=== PATIENT | male | born 1975 | race African-American/Black ===

== ENCOUNTER 2017-11-10 05:59 | Day surgery (SDC) | payer MEDICAID ==
[~2017-11-10] VITALS: Ht 167.6 cm; Wt 59.0 kg
--- NOTE | ~2017-11-10 | OP ---
PATIENT NAME: CONCEPCION ASHRAF MEDICAL RECORD: [id number] :[birth year] LOCATION:[facility] ADMISSION DATE: SURGEON: ELAN LOPEZ MD DATE OF OPERATION: 11/10/2017 REFERRING PHYSICIAN: Dr. Kaykay Dorado. PREOPERATIVE DIAGNOSES: End-stage renal disease and dependence on hemodialysis, presently catheter dependent for dialysis access, also hypertension and insulin-dependent diabetes. OPERATION PERFORMED: Creation of a left wrist radiocephalic AV fistula. SURGEON: Elan Lopez MD ANESTHESIA: Regional block plus general anesthesia by LMA per Dr. Bernal. PREOPERATIVE NOTE: Mr. Ashraf is a 42-year-old -Iranian male with end-stage renal disease, dialyzing with a tunneled dialysis catheter. He needs a long-term access. He has large superficial veins and is brought to the operating room today with plans to create an AV fistula in the left upper extremity. DESCRIPTION OF PROCEDURE: Under nerve block and general, the patient was placed in supine position, prepped and draped in a sterile manner. A proximal venous tourniquet was applied using a [place] drain and the skin of the forearm and arm was treated with an application of nitroglycerin paste. Superficial veins stood out quite nicely. He has had a satisfactory cephalic vein at the wrist, which obviously drains via the basilic vein on ultrasound. The cephalic vein above the antecubital space was very small, so I believe that in the future, he would be a candidate for a brachiobasilic fistula, but today we will try to create a radiocephalic. A longitudinal incision made and the vessels exposed and treated with topical papaverine. Tributaries and branches were divided with electrocautery. The vein was gently distended and later closed with a Hemoclip distally and divided and bevelled. It was flushed with heparinized saline and hydrostatically dilated. The artery was then occluded with doubly looped Silastic tapes. The artery was opened, flushed proximally and distally with heparinized saline. There was no calcification present, mild atherosclerotic plaquing. There was a very good lumen to the radial artery, which was of adequate caliber. The end of vein was then sutured with running 7-0 Prolene to the side of the artery with the resultant suture line being hemostatic and there was a satisfactory geometry to the anastomosis. With release of the occluding loops and clamps, excellent flow was immediately established in the fistula and confirmed by hand held continuous wave Doppler. There was preservation of flow in the radial artery proximal and distal to the anastomosis. The wound was irrigated with Ancef and gentamicin solution. Oozing and bleeding from subcutaneous vessels was persistent, which eventually required treating the patient with 16 mcg of DDAVP IV and I used some topical thrombin and fibrillar. When hemostasis was adequate and the fistula was still working very well, the wound was closed with interrupted inverted 3-0 Vicryl and then running intracuticular 4-0 Monocryl and Dermabond glue. The incision was closed and dressed further with Maxorb Ag, Tegaderm, and Cavilon skin prep. He was awakened and taken to the recovery room. OPERATIVE REPORT [id number] CONCEPCION ASHRAF Blood loss during the procedure was minimal, although he did require the DDAVP and thrombin and fibrillar for hemostasis. There was no surgical specimen submitted. All sponges, instruments, and needles were accounted for. PLAN: The patient will be discharged to home today from the outpatient department. He will have an appointment scheduled for my office to see me next week and he is given a prescription for 10 Lignum tablets 5/325 to take 1 every 4-6 hours if needed for pain. TRANSINT:[id number] Voice Confirmation ID: [id number] DOCUMENT ID: [id number] ELAN LOPEZ MD at 1241 CC: KAYKAY DORADO MD [id number] DICTATION DATE: 11/10/17 1118 CONFERENCE PLANNING MANAGER: 11/10/17 1305 [facility] 11/10/17 [id number] [place] [address]
[2017-11-10 06:25] LABS: BASOPHILS 1.5 % (0-2); EOSINOPHILS 5.7 % (0-7); HEMATOCRIT 43.5 % (42.0-54.0); HEMOGLOBIN 14.8 g/dL (13.5-17.5); IMMATURE GRANULOCYTES 0.3 % (0-5); LYMPHOCYTES 21.7 % (15-50); MCH 30.7 pg (26.0-34.0); MCV 90.2 fL (80.0-100.0); MEAN PLATELET VOLUME 10.8 fL (7.4-10.4); MONOCYTES 6.1 % (2-11); NEUTROPHILS 64.7 % (40-80); PLATELET COUNT 268 10x3/uL (130-400); RBC 4.82 10x6/uL (4.20-6.10); WBC 8.8 10x3/uL (4.8-10.8)
[2017-11-10 06:33] LABS: APTT 28.2 SECONDS (22.8-39.4); INR 1.02 (0.85-1.17)
[2017-11-10] MEDS ORDERED: METOPROLOL TART50 MG PO (06:46)
[2017-11-10] MEDS ORDERED: SENSIPAR30 MG (06:47)
[2017-11-10] MEDS ORDERED: INSULIN ASPART (06:48)
[2017-11-10] MEDS ORDERED: NORVASC10 MG PO (06:48)
[2017-11-10] MEDS ORDERED: INSULIN ASPART PROTAMINE (06:48)
[2017-11-10] MEDS ORDERED: DESERYL100 MG PO (06:49)
[2017-11-10] MEDS ORDERED: CATAPRES0.2 MG PO (06:49)
[2017-11-10] MEDS ORDERED: NICODERM C1 PATCH .3 TRANSDERM (06:51)
[2017-11-10] MEDS ORDERED: TUMS500 MG PO (06:53)
[2017-11-10 06:54] VITALS: Ht 167.6 cm; Wt 59.0 kg
[2017-11-10 07:44] LABS: ALBUMIN 4.8 g/dL (3.4-5.0); ANION GAP 24.1 mmol/L (8-16); BILIRUBIN - TOTAL 0.4 mg/dL (0.2-1.3); CALCIUM 9.2 mg/dL (8.5-10.1); CARBON DIOXIDE 25.9 mmol/L (21.0-32.0); CREATININE - SERUM 5.7 mg/dL (0.6-1.3); PROTEIN - SERUM 9.5 g/dL (6.4-8.2)
[2017-11-10] MEDS ORDERED: HYDROCODON-ACE1 EAC7 PO (11:00)
== END 2017-11-10 13:30 | disposition home or self-care (01) ==
LOC: D.OPS 05:59
PROVIDERS: Surgery
DX: E11.22 Type 2 diabetes mellitus with diabetic chronic kidney disease (principal); I12.0 Hypertensive chronic kidney disease with stage 5 chronic kidney disease or end stage renal disease; N18.6 End stage renal disease; Z99.2 Dependence on renal dialysis; Z79.4 Long term (current) use of insulin; Z01.812 Encounter for preprocedural laboratory examination

== ENCOUNTER 2018-12-17 22:58 | Inpatient (IN) | payer MEDICAID ==
[~2018-12-17] VITALS: Ht 167.6 cm; Wt 59.0 kg
[~2018-12-17 22:58] MED LIST: CATAPRES0.2 MG PO; DESERYL100 MG PO; HYDROCODON-ACE1 EAC7 PO; INSULIN ASPART; INSULIN ASPART PROTAMINE; METOPROLOL TART50 MG PO; NICODERM C1 PATCH .3 TRANSDERM; NORVASC10 MG PO; SENSIPAR30 MG; TUMS500 MG PO
[2018-12-18 00:17] LABS: INR 1.27 (0.85-1.17); PROTIME 15.4 SECONDS (11.6-15.0)
[2018-12-18 00:18] LABS: BASOPHILS 0.4 % (0-2); EOSINOPHILS 4.7 % (0-7); HEMATOCRIT 24.9 % (42.0-54.0); HEMOGLOBIN 7.9 g/dL (13.5-17.5); IMMATURE GRANULOCYTES 0.4 % (0-5); LYMPHOCYTES 15.4 % (15-50); MCH 27.1 pg (26.0-34.0); MCHC 31.7 g/dL (31.0-37.0); MCV 85.6 fL (80.0-100.0); MEAN PLATELET VOLUME 8.5 fL (7.4-10.4); NEUTROPHILS 74.1 % (40-80); PLATELET COUNT 564 10x3/uL (130-400); RBC 2.91 10x6/uL (4.20-6.10); RDW 22.3 % (11.5-14.5); WBC 16.3 10x3/uL (4.8-10.8)
[2018-12-18 00:22] LABS: ALBUMIN 2.9 g/dL (3.4-5.0); ANION GAP 23.8 mmol/L (8-16); BILIRUBIN - TOTAL 0.78 mg/dL (0.2-1.3); CALCIUM 8.5 mg/dL (8.5-10.1); CARBON DIOXIDE 22.4 mmol/L (21.0-32.0); CREATININE - SERUM 7.8 mg/dL (0.6-1.3); POTASSIUM - SERUM 5.2 mmol/L (3.5-5.1); PROTEIN - SERUM 9.6 g/dL (6.4-8.2)
--- NOTE | 2018-12-18 00:28 | NUR ---
PT LEFT ED VIA WC FOR CT.
--- NOTE | 2018-12-18 00:40 | NUR ---
PT RETURNED FROM CT VIA WC. PT IN BED RESTING COMFORTABLY.
[2018-12-18 01:30] VITALS: BP 128/68
--- NOTE | 2018-12-18 02:18 | NUR ---
PT SLEEPING ON BED, PT FAMILY AT BEDSIDE.
--- NOTE | 2018-12-18 02:45 | NUR ---
LAB AT PT BEDSIDE DRAWING BLOOD CULTURES.
--- NOTE | 2018-12-18 03:10 | NUR ---
PT C/O PAIN. PRN ORDERS FOR MORPHINE AND ZOFRAN WILL BE ADMINISTERED.
--- NOTE | 2018-12-18 03:30 | NUR ---
PT ARRIVED TO FLOOR VIA WHEELCHAIR FROM ER WITH HOSPITAL STAFF. PT VITALS STABLE. FATIMAH WOODS HAD GIVEN PT PAIN MEDS BEFORE ARRIVAL. SEE SEP. PT VOMITED 500ML OF BROWN EMESIS UPON ARRIVAL. PT WAS FALLING ASLEEP DURING ASSESSMENT. PT COMPLAINS OF PAIN IN GLANS PENIS 7/10 AT THIS TIME. PT PRESENTED WITH BANDAGE TO RIGHT FOOT. REMOVED DRESSING THERE IS A STAGE 2 ULCER 5X5 TO HEEL. FOUL SMELL COMING FROM WOUND WITH YELLOW/GREEN DRAINAGE. PT STATES MOTHER HAS BEEN DRESSING WOUND. OPEN SORES AND SCABS ON BACK. BED LOW CALL LIGHT WITHIN REACH. WILL CONTINUE TO MONITOR.
[2018-12-18] MEDS ORDERED: LEVEMIR IN100 UNITS/ SC (03:58)
[2018-12-18] MEDS ORDERED: COREG6.25 MG PO (03:59)
[2018-12-18 04:48] VITALS: BP 183/97; BMI 21.0
[2018-12-18 07:32] VITALS: BP 131/82
--- NOTE | 2018-12-18 07:47 | NUR ---
MORNING ROUNDS MADE. PT SITTING UP ON SIDE OF BED WITH BEDSIDE TABLE WITHIN REACH. PT STATES PAIN IN GROIN/PENIS REGION, INFORMED PT I WOULD CHECK TO SEE WHEN PAIN MEDS WHERE DUE AND BRING THEM AT THE APPROPRIATE TIME. PT AGREED WITH POC. DENIES FURTHER NEEDS AT THIS TIME. FALL PRECAUTIONS IN PLACE. BED LOWERED AND LOCKED. CL IN REACH. WILL CTM.
--- NOTE | 2018-12-18 08:41 | NUR ---
VITALS STABLE. PT TOOK MEDS WITHOUT DIFFICULTY. PT C/O PAIN AT "THE HIGHEST LEVEL POSSIBLE" IN PENIS. MORPHINE GIVEN TO IV IN R FA, PATENT, DRSG C/D/I. PT SITTING UP ON SIDE OF BED, LEANED OVER. PT REFUSES TO GET UP IN THE BED. PT STATED "IT HURTS TO GET IN THE BED" NO FURTHER CONCERNS AT THIS TIME. FALL PRECAUTIONS IN PLACE. NON SKID SOCKS ON, YELLOW GOWN ON, BED LOWERED AND LOCKED. BED SIDE TABLE WITHIN REACH, CL IN REACH. WILL CTM.
[2018-12-18 08:45] VITALS: BMI 20.9
--- NOTE | 2018-12-18 09:57 | MORECARE ---
CASE MANAGEMENT DISCHARGE SUMMARY PATIENT: CONCEPCION SWIFT UNIT: [id number] ADM DATE: 12/18/18 AGE: 43 : [birth year] SEX: M ROOM/BED: D.1212 AUTHOR: DURGA,DOC PHYSICIAN: REFERRING PHYSICIAN: RACHEL SAENZ MD DATE OF SERVICE: 12/18/18 Discharge Plan Patient Name: CONCEPCION SWIFT Facility: [facility]:[place] : 1975 Planned Disposition: Home Anticipated Discharge Date: Discharge Date: Expected LOS: Initial Reviewer: YESSENIA Initial Review Date: 12/18/2018 Generated: 12/18/18 10:57 am DCP- Discharge Planning Updated by YESSENIA: Светлана Farris on 12/18/18 8:[address] Patient Name: CONCEPCION SWIFT Admission Status: ER Accout number: [id number] Admission Date: 12-18-2018 : 1975 Admission Diagnosis: Attending: RACHEL SAENZ Current LOS: 1 Anticipated DC Date: Planned Disposition: Home Primary Insurance: MEDICAID [place] Discharge Planning Comments: CM met with patient to complete initial dc planning assessment. CM educated patient on the CM role and verbal consent given by patient to complete assessment. CM verified patient's address, phone number, and emergency contact phone numbers. Patient lives at home WITH LEONIE SARABIA [phone] and reports He is independent in HIS care BUT HAS hh and he thinks its with [facility] . At discharge patient plans to return home and feels this is a safe discharge. CM discussed availability of home health, rehab services, and medical equipment. Patient denied known discharge needs at this time.. CM will continue to follow and will assist as needed with dc plans/needs. Microfilm Machine Operator: Светлана Farris DCPIA - Discharge Planning Initial Assessment Updated by [email or web address]: Светлана Farris on 12/18/18 9:57 am * Is the patient Alert and Oriented? Yes * How many steps to enter\exit or inside your home? * PCP HD drs * ADLs Independent * Verbal permission to speak to the caregivers and representatives has been obtained from the patient. Yes * Additional services required to return to the preadmission environment? No * Can the patient safely return to the preadmission environment? Yes * Has this patient been hospitalized within the prior 30 days at any hospital? No Patient Name: CONCEPCION SWIFT Page [id number] at 0957 All edits/amendments must be made on the electronic document DICTATION DATE: 12/18/18956 WIND OPERATIONS SUPERVISOR: MAICOL 12/18/18956 RPT#: [id number] DC DATE: STATUS: ADM IN [facility] [address] [place] [address] END OF REPORT
[2018-12-18 12:35] VITALS: Ht 167.6 cm; Wt 59.0 kg
[2018-12-18 14:50] VITALS: BP 179/99
--- NOTE | 2018-12-18 14:52 | NUR ---
CLEAN URINAL GIVEN TO PT, INFORMED PT TO USE URINAL NEXT TIME HE NEEDS TO URINATE AND I WOULD COLLECT IT FOR A URINE SAMPLE FOR THE DOCTOR. PT AGREED WITH POC. NO FURTHER CONCERNS AT THIS TIME.
--- NOTE | 2018-12-18 15:56 | NUR ---
I have reviewed this patient and I concur with the Shift Assessment completed by the Licensed Practical Nurse today this shift.
--- NOTE | 2018-12-18 18:57 | NUR ---
PT IN BED RESTING QUIETLY WITH EYES CLOSED. EVEN AND UNLABORED RESPIRATIONS NOTED AT THIS TIME.
[2018-12-18 20:00] VITALS: BP 128/83
--- NOTE | 2018-12-18 22:09 | NUR ---
RAPID RESPONSE CALLED AT 2130. PT WAS NOT AROUSEABLE BUT FOR A FEW SECONDS. VS STABLE FSBS 123.
[2018-12-18 22:13] LABS: ANION GAP 26.1 mmol/L (8-16); CALCIUM 7.8 mg/dL (8.5-10.1); CARBON DIOXIDE 23.4 mmol/L (21.0-32.0); CREATININE - SERUM 9.3 mg/dL (0.6-1.3)
[2018-12-18 22:20] LABS: BASOPHILS 0.6 % (0-2); EOSINOPHILS 7.2 % (0-7); HEMATOCRIT 25.1 % (42.0-54.0); IMMATURE GRANULOCYTES 0.6 % (0-5); LYMPHOCYTES 19.2 % (15-50); MCH 27.3 pg (26.0-34.0); MCHC 31.9 g/dL (31.0-37.0); MCV 85.7 fL (80.0-100.0); MEAN PLATELET VOLUME 8.4 fL (7.4-10.4); MONOCYTES 5.9 % (2-11); NEUTROPHILS 66.5 % (40-80); PLATELET COUNT 506 10x3/uL (130-400); RBC 2.93 10x6/uL (4.20-6.10); RDW 22.5 % (11.5-14.5); WBC 13.7 10x3/uL (4.8-10.8)
[2018-12-18 22:21] LABS: POTASSIUM - SERUM 6.5 mmol/L (3.5-5.1)
--- NOTE | 2018-12-18 22:46 | NUR ---
ORDERS GIVEN BY DR PASCAL. CIVIL ENGINEERING SPECIALIST NOTIFIED.
--- NOTE | 2018-12-19 01:52 | NUR ---
FSBS 43 AT THIS TIME. PT IS MORE ALERT AND ORIENTED THAN HE HAS BEEN PREVIOUSLY. PT DOES NOT REMEBER ANYTHING FROM THE RAPID RESPONSE. APPLE JUICE, CHEKO CRACKERS, PUDDING, AND APPLE SAUCE PROVIDED PT IS EATING.
--- NOTE | 2018-12-19 02:16 | NUR ---
FSBS 56 AT THIS TIME
--- NOTE | 2018-12-19 02:31 | NUR ---
FBS IS 42 AT THIS TIME
--- NOTE | 2018-12-19 02:58 | NUR ---
FSBS 72 AT THIS TIME.
[2018-12-19 03:14] LABS: BASOPHILS 0.4 % (0-2); EOSINOPHILS 8.3 % (0-7); HEMATOCRIT 25.1 % (42.0-54.0); HEMOGLOBIN 7.9 g/dL (13.5-17.5); IMMATURE GRANULOCYTES 0.5 % (0-5); LYMPHOCYTES 22.1 % (15-50); MCH 27.2 pg (26.0-34.0); MCHC 31.5 g/dL (31.0-37.0); MCV 86.6 fL (80.0-100.0); MEAN PLATELET VOLUME 8.5 fL (7.4-10.4); MONOCYTES 6.1 % (2-11); NEUTROPHILS 62.6 % (40-80); PLATELET COUNT 489 10x3/uL (130-400); RDW 22.9 % (11.5-14.5); WBC 14.8 10x3/uL (4.8-10.8)
[2018-12-19 03:30] LABS: ANION GAP 26.2 mmol/L (8-16); CALCIUM 8.7 mg/dL (8.5-10.1); CARBON DIOXIDE 21.9 mmol/L (21.0-32.0); CREATININE - SERUM 9.5 mg/dL (0.6-1.3); MAGNESIUM - SERUM 2.2 mg/dL (1.8-2.4)
[2018-12-19 03:34] LABS: POTASSIUM - SERUM 5.1 mmol/L (3.5-5.1)
[2018-12-19 03:40] LABS: PHOSPHOROUS 10.2 mg/dL (2.5-4.9)
--- NOTE | 2018-12-19 03:42 | NUR ---
FSBS IS 52 AT THIS TIME
[2018-12-19 04:00] VITALS: BP 131/82
--- NOTE | 2018-12-19 04:25 | NUR ---
COMPUTER DESIGNER PAGED ABOUT DROPPING GLUCOSE. ORDERS GIVEN.
--- NOTE | 2018-12-19 04:51 | NUR ---
FSBS IS 35 AT THIS TIME.
--- NOTE | 2018-12-19 04:56 | NUR ---
IV TO R FA INFILTRATED. UNABLE TO GAIN IV ACCESS AFTER 8 ATTMEPTS BY 3 SEPERATE NURSES. INFORMED CROSSBAR FRAME WIRER ORDERS GIVEN TO CALL IN SURGICAL TEAM. SURGEON OCCUPATIONAL HEALTH AND SAFETY OFFICER PAGED AND INFORMED.
--- NOTE | 2018-12-19 05:27 | NUR ---
ANOTHER 4 UNSUCCESSFUL IV ATTMEPTS BY ICU NURSE.
--- NOTE | 2018-12-19 05:45 | NUR ---
FSBS IS 50 AT THIS TIME. WAS ABLE TO GET PT TO DRINK 240ML OF APPLE JUICE AND PROBLEM MANAGER WAS ABL TO PT TO DRINK 1 AMP OF D50
--- NOTE | 2018-12-19 07:34 | NUR ---
PT NOTED LEANED OVER SIDE RAIL THROWING UP COPIOUS AMOUNTS OF CLEAR YELLOW EMESIS IN TRASH CAN. BP 123/103, O2 100%, HR 87, R 18, BLOOD SUGAR AT THIS TIME 87. BREAKFAST TRAY ON BEDSIDE TABLE. INFORMED PT THAT HE NEEEDED TO EAT SOME BREAKFAST, PT STATED "I AINT GONNNA EAT THAT NASTY SHIT" INFORMED PT THAT IT IS VERY IMPORTANT FOR YOUR LOW BLOOD SUGAR THAT YOU EAT A GOOD BREAKFAST. PT STATED "I DONT CARE I STILL AINT GONNA EAT THAT GROSS FOOD" WILL CONTINUE TO MONITOR PT AND BLOOD SUGAR LEVELS. NO IV ACCESS AT THIS TIME. DR. KAUFMAN AWARE OF CENTRAL LINE PLACEMENT NEED AT 0450 THIS AM.
[2018-12-19 07:37] VITALS: BP 151/92
--- NOTE | 2018-12-19 08:07 | NUR ---
PAGED DR. WILSON FOR CENTRAL LINE PLACEMENT, PAGED RETURNED AND ORDERS GIVEN TO CANCEL CONSULT AND CONSULT VASCULAR ACCESS FOR PICC PLACEMENT. NO FURTHER ORDRES AT THIS TIME.
--- NOTE | 2018-12-19 08:20 | NUR ---
RUPERTO RENAL AUTO HIKER IN PT ROOM ROUNDING AT THIS TIME.
--- NOTE | 2018-12-19 09:07 | NUR ---
PT LAYING IN BED SLEEPING/SNOORING. PT AROUSED TO VOICE. PT A/O X 4. SAT UP ON SIDE OF BED AND TOOK MEDS WITHOUT DIFFICULTY. WENT BACK TO SLEEPING IMMEDIATELY AFTER TAKING MEDICATIONS. DENIES PAIN AT THIS TIME. PT C/O BEING COLD. BLANKETS PROVIDED. NO FURTHER CONCERNS AT THIS TIME. TAWNYA MAT ON, BED LOWERED AND LOCKED. CL IN REACH. WILL CTM.
--- NOTE | 2018-12-19 16:41 | NUR ---
DC GIVEN TO PT. NO IV ACCESS. MOM CALLED AND IS ON HER WAY, WILL ARRIVE TO [facility] PT AROUND 1700
--- NOTE | 2018-12-19 17:33 | NUR ---
PT MOTHER STILL NOT HERE TO GET PT.
--- NOTE | 2018-12-19 17:56 | NUR ---
PT DC HOME VIA WHEELCHAIR WITH MOM PER PERSONAL CAR.
--- NOTE | 2018-12-20 12:06 | MORECARE ---
CASE MANAGEMENT DISCHARGE SUMMARY PATIENT: CONCEPCION SWIFT UNIT: [id number] ADM DATE: 12/18/18 AGE: 43 : 79 SEX: M ROOM/BED: D.1212 AUTHOR: DURGA,DOC PHYSICIAN: REFERRING PHYSICIAN: RACHEL SAENZ MD DATE OF SERVICE: 12/20/18 Discharge Plan Patient Name: CONCEPCION SWIFT Facility: [facility]:[place] : 1975 Planned Disposition: Home Anticipated Discharge Date: Discharge Date: 12/19/2018 Expected LOS: Initial Reviewer: [email or web address] Initial Review Date: 12/18/2018 Generated: 12/20/18 1:06 pm DCP- Discharge Planning Updated by YESSENIA: Светлана Farris on 12/18/18 8:[address] Patient Name: CONCEPCION SWIFT Admission Status: ER Accout number: [id number] Admission Date: 12-18-2018 : 1975 Admission Diagnosis: Attending: RACHEL SAENZ Current LOS: 1 Anticipated DC Date: Planned Disposition: Home Primary Insurance: MEDICAID [place] Discharge Planning Comments: CM met with patient to complete initial dc planning assessment. CM educated patient on the CM role and verbal consent given by patient to complete assessment. CM verified patient's address, phone number, and emergency contact phone numbers. Patient lives at home WITH MOM NO [phone] and reports He is independent in HIS care BUT HAS hh and he thinks its with [facility] . At discharge patient plans to return home and feels this is a safe discharge. CM discussed availability of home health, rehab services, and medical equipment. Patient denied known discharge needs at this time.. CM will continue to follow and will assist as needed with dc plans/needs. Supervisor Drying And Softening: Светлана Farris DCPIA - Discharge Planning Initial Assessment Updated by [email or web address]: Светлана Farris on 12/18/18 9:57 am * Is the patient Alert and Oriented? Yes * How many steps to enter\exit or inside your home? * PCP HD drs * ADLs Independent * Verbal permission to speak to the caregivers and representatives has been obtained from the patient. Yes * Additional services required to return to the preadmission environment? No * Can the patient safely return to the preadmission environment? Yes * Has this patient been hospitalized within the prior 30 days at any hospital? No Last DP export: 12/18/18 8:57 a Patient Name: CONCEPCION SWIFT Page 46725 at 1206 All edits/amendments must be made on the electronic document DICTATION DATE: 12/20/181204 SOCIAL SCIENCES CHAIR: MAICOL 12/20/181204 RPT#: [id number] DC DATE:12/19/18 STATUS: DIS IN [facility] [address] [place] [address] END OF REPORT
== END 2018-12-19 17:56 | disposition home or self-care (01) | DRG 299 ==
LOC: D.ER 22:58 → D.M3 12-18 02:15
PROVIDERS: Family Medicine; ADMIT Internal Medicine; ATTEND Internal Medicine
DX: E11.52 Type 2 diabetes mellitus with diabetic peripheral angiopathy with gangrene (principal); N18.6 End stage renal disease; I13.2 Hypertensive heart and chronic kidney disease with heart failure and with stage 5 chronic kidney disease, or end stage renal disease; I96 Gangrene, not elsewhere classified; N48.89 Other specified disorders of penis; I50.9 Heart failure, unspecified; E11.22 Type 2 diabetes mellitus with diabetic chronic kidney disease